=== PATIENT | female | born 1985 | race Native Hawaiian/Other Pacific Islander ===

== ENCOUNTER 2017-05-02 15:37 | Outpatient (CLI) | payer BC | END 2017-05-02 19:25 | disposition home or self-care (01) | LOC: RAD 15:37 | DX: M25.532 Pain in left wrist (principal) ==

== ENCOUNTER 2019-08-05 11:42 | Outpatient (CLI) | payer BC, OTHER | END 2019-08-05 20:09 | disposition home or self-care (01) | LOC: LAB 11:42 | DX: R50.9 Fever, unspecified (principal) | CPT/HCPCS: 87635; G2023; U0002 ==

== ENCOUNTER 2021-08-01 08:20 | Outpatient (CLI) | payer BC | END 2021-08-01 19:00 | disposition home or self-care (01) | LOC: CT 08:20 | PROVIDERS: ATTEND Physician Assistant | DX: R10.84 Generalized abdominal pain (principal) ==

== ENCOUNTER 2022-08-19 09:27 | Outpatient (CLI) | payer BC | END 2022-08-19 18:53 | disposition home or self-care (01) | LOC: MAMMO 09:27 | PROVIDERS: ATTEND Obstetrics & Gynecology | DX: Z12.31 Encounter for screening mammogram for malignant neoplasm of breast (principal) ==